=== PATIENT | male | born 1995 | race Caucasian/White ===

== ENCOUNTER 2018-03-15 23:40 | Emergency (ER) | payer OTHER ==
[~2018-03-15] VITALS: Ht 170.2 cm; Wt 68.0 kg
[2018-03-16] MEDS ORDERED: IBUPROFEN 400400 M2 PO (00:32)
[2018-03-16 00:58] VITALS: BP 115/66
== END 2018-03-16 07:47 | disposition home or self-care (01) ==
LOC: ER 23:40
DX: S93.402A Sprain of unspecified ligament of left ankle, initial encounter (principal); X50.9XXA Other and unspecified overexertion or strenuous movements or postures, initial encounter; Y93.66 Activity, soccer; Y92.89 Other specified places as the place of occurrence of the external cause; Y99.8 Other external cause status